=== PATIENT | female | born 1985 | race Caucasian/White ===

== ENCOUNTER → 2016-12-10 | Outpatient (CLI) | payer OTHER ==
--- NOTE | 2016-12-10 11:58 | US ---
First Trimester Obstetrical Sonography Clinical History: 31-year-old female at 7 weeks gestation with some vaginal bleeding. Confir m viability. LMP: October 22, 2016, indicating an age of 7 weeks 0 days, and an estimated date of delivery of Jul. Technique: A curvilinear 5 MHz transducer was used to sonographically evaluate the pelvis, using a fu ll urinary bladder as a window. Color and spectral Doppler of the maternal ovaries and M-mode Doppler of the embryo was performed. A cine clip is stored on PACS. Comparison study: None available. Findings: The uterus is normal in size, shape, and position, measuring 9.2 x 4.5 x 6.7 cm. Within the endometrium, there is a circumferential decidual reaction around a gestational sac, which contains a n embryonic pole with a length of 8.2 mm, corresponding to an age of 6 weeks 6 days. Heart rate activ ity is confirmed at 133 bpm. A 4.3-mm yolk sac is observed. There is a tiny left-sided crescentic sub chorionic hemorrhage measuring 1.0 x 0.5 x 1.5 cm. There is no focal fibroid. The maternal right ovar y measures 3.1 x 2.2 x 2.5 cm with a resistive index of 0.53, and the maternal left ovary measures 4. 1 x 1.9 x 2.0 cm with a resistive index of 0.55. There is a hypoechoic 2.3 x 1.8 x 2.2 cm corpus lute um cyst associated with the left ovary. Impression: 1. There is a single viable intrauterine gestation with biometry concordant with menstrual dating. Th e patient should return at 20 weeks gestation for more complete anatomic screening and repeat biometr y. 2. There is a tiny crescentic left-sided subchorionic hemorrhage.
== END ==
LOC: FIMAGING 10:23
PROVIDERS: ATTEND Obstetrics & Gynecology Gynecology
DX: O26.851 Spotting complicating pregnancy, first trimester (principal); O20.8 Other hemorrhage in early pregnancy; Z3A.01 Less than 8 weeks gestation of pregnancy

== ENCOUNTER 2017-07-22 20:16 | Inpatient (IN) | payer OTHER ==
[2017-07-22] MEDS ORDERED: AMPICILLIN SODIUM 2 GM/10 ML VIAL ONE (20:23)
[2017-07-22] MEDS ORDERED: NS 100 ML BAG (MINI-BAG) IV ONE (20:24)
[2017-07-22] MEDS ORDERED: EPSOM SALT 454 GM TP PRN (20:34)
[2017-07-22] MEDS ORDERED: TERBUTALINE SULFATE 1 MG/ML VIAL IV PRN (20:34)
[2017-07-22] MEDS ORDERED: LR 1,000 ML IV PRN (20:34)
[2017-07-22] MEDS ORDERED: OXYTOCIN 20 UNIT in LR 1,000 ML IV PRN (20:34)
[2017-07-22] MEDS ORDERED: AMPICILLIN SODIUM 2 GM in NS 100 ML IV ONE (20:34)
[2017-07-22] MEDS ORDERED: OLIVE OIL 118 ML BTL MISC PRN (20:34)
[2017-07-22 20:53] LABS: % IMMATURE GRANULYOCYTES 0.7 % (0.0-1.1); ABSOLUTE IMMATURE GRANULOCYTES 0.09 10^3/uL (0.00-0.10); ADD DIFF? NO; ADD MORPH? NO; ADD SCAN? NO; ATYPICAL LYMPHOCYTE FLAG 10 (0-99); FRAGMENT RBC FLAG 0 (0-99); HEMATOCRIT 42.9 % (38.0-47.0); HEMOGLOBIN 15.3 g/dL (12.6-16.3); LEFT SHIFT FLG 0 (0-99); LIPEMIA HEMOLYSIS FLAG 90 (0-99); MEAN CELL HEMOGLOBIN 31.5 pg (27.9-34.1); MEAN CELL HEMOGLOBIN CONCENTR. 35.7 g/dL (32.4-36.7); MEAN CELL VOLUME 88.3 fL (81.5-99.8); MEAN PLATELET VOLUME 11.2 fL (8.7-11.7); PLATELET CLUMPS FLAG 10 (0-99); PLATELET COUNT 176 10^3/uL (150-400); RED BLOOD CELL COUNT 4.86 10^6/uL (4.18-5.33); RED CELL DISTRIBUTION WIDTH 12.4 % (11.5-15.2)
--- NOTE | 2017-07-22 20:56 | OBPROG ---
Labor Progress Note Assessment/Plan: Assessment:cat 2 fhr pain well managed coping fair 9/100/0 + bloody show intact ampicillin #1 at 2030/ GBS positive Plan:expectant management of labor 07/22/17 20:54 Subjective/Intrapartum Course: Contractions began at 1700 q5 minutes denies srom. + bloody show. To labor and delivery at 0800 9cm. Intact feeling positive movement no medical difficulties 07/22/17 20:52 Coping well with the contractions. Changing position. GBS positive denies allergies to PCN - SVE Dilation (cm): 9 Effacement (%): 100 Station: 0 Membranes: Intact - Contraction Pattern Assessment Current Contraction Pattern: Regular - Physical Exam General Appearance: WD/WN, alert, no apparent distress Respiratory: chest non-tender, lungs clear, normal breath sounds Cardiac/Chest: regular rate, rhythm Abdomen: normal bowel sounds Extremities: normal range of motion, Juliano's sign (negative bilaterally) DTR- Lower Extremities: Knee (R): 1+, Knee (L): 1+ (no clonus) Skin: normal color, warm/dry Neuro/Psych: no motor/sensory deficits, alert, normal mood/affect, oriented x 3 ICD10 Worksheet Patient Problems: Problems Problem Status Onset term labor Acute
--- NOTE | 2017-07-22 21:30 | GHP ---
[f rep st] HISTORY AND PHYSICAL DATE OF ADMISSION: 07/22/2017 HISTORY OF PRESENT ILLNESS: The patient is a 32-year-old, 1, para 0, with an EDC of 07/30/2017 at 39 weeks gestation who comes into Labor and Delivery at 2030 on 07/21/2017 with complaints of regular contractions since 5 p.m. On admission the patient is 9 cm, 100% effaced, -1 station, bag of water still intact, cephalic. States feeling positive movement. Denies rupture of membranes. Positive bloody show. The patient is GBS positive. The patient has been routinely seen at [facility] since 12/20/2016 at 8 weeks and 3 days gestation where dates were verified on a first trimester US. PAST MEDICAL HISTORY: Benign. PAST SURGICAL HISTORY: [place] teeth and a hysteroscopy. PAST GYNECOLOGICAL HISTORY: Previous OCP use. Previous natural family planning. With the hysteroscopy, the patient had a history of severe dysmenorrhea and polyps. FAMILY HISTORY: Benign and noncontributory. SOCIAL HISTORY: Significant other's name is Dipesh. Denies tobacco use, drug use , alcohol use with the . LABS: Patient is O positive. Antibody negative. RPR is nonreactive. Rubella is immune. Hepatitis is negative. HIV is negative. Trio screen was negative. TSH was within normal limits. Urine, gonorrhea and chlamydia were negative. A 1-hour GTT was negative. The patient is GBS positive. PHYSICAL EXAMINATION: GENERAL: The patient is awake, alert, oriented x3. LUNGS: Clear bilaterally. ABDOMEN: Bowel sounds are positive in all 4 quadrants. EXTREMITIES: DTRs are 1+ bilaterally. Homans sign is negative bilaterally. The patient is coping well through the contractions. Contractions are every 2-3 minutes, palpating firm. REVIEW OF SYSTEMS: Noncontributory. PLAN OF CARE: 1. Group B Strep positive. Ampicillin for coverage. 2. Expectant management of labor. 3. Consult physician as needed, Dr. Indira Vora. /[id number]/MODL MTDD
[2017-07-22] MEDS ORDERED: TERBUTALINE SULFATE 1 MG/ML VIAL ONE (22:26)
[2017-07-22] MEDS ORDERED: OLIVE OIL 118 ML BTL ONE (22:26)
[2017-07-22] MEDS ORDERED: LIDOCAINE 1% 300 MG/30 ML SDV ONE (22:26)
[2017-07-22] MEDS ORDERED: AMMONIA AROMATIC 1 EACH AMP IH ONE (22:26)
[2017-07-22] MEDS ORDERED: OXYTOCIN 10 UNIT/ML VIAL ONE (22:27)
[2017-07-22] MEDS ORDERED: MISOPROSTOL 200 MCG TAB ONE (22:27)
[2017-07-23] MEDS: AMPICILLIN SODIUM 1 GM in NS 100 ML IV SCH ×2 (00:02→20:18)
[2017-07-23] MEDS ORDERED: HYDROCORTISONE 0.5% CREAM TP PRN (01:29)
[2017-07-23] MEDS ORDERED: ACETAMINOPHEN 325 MG TAB PO PRN (01:29)
[2017-07-23] MEDS ORDERED: SIMETHICONE 80 MG TAB CHEW PO PRN (01:29)
--- NOTE | 2017-07-23 01:29 | OBDEL ---
Info Type: Vaginal Presentation at Delivery: Vertex L&D Analgesia/Anesthesia Type: None GBS+: Yes Antibiotic Used for + GBS: Ampicillin Intrapartum Medications: Generic Name Dose Route Start Last Admin Trade Name Sujata PRN Reason Stop Dose Admin Ampicillin Sodium 1 gm/ Sodium 100 mls @ 200 mls/hr 07/23/17 00:35 07/23/17 00:02 Chloride IV 08/22/17 00:34 100 mls Q4H ARABELLA Administration Protocol Discontinued Medications Generic Name Dose Route Start Last Admin Trade Name Fredarrius PRN Reason Stop Dose Admin Ampicillin Sodium 2 gm/ Sodium 110 mls @ 220 mls/hr 07/22/17 20:34 07/22/17 20:35 Chloride IV 07/22/17 21:03 110 mls ONCE ONE Administration Protocol - Hospital Course Intrapartum: Contractions began at 1700 q5 minutes denies srom. + bloody show. To labor and delivery at 0800 9cm. Intact feeling positive movement no medical difficulties 07/22/17 20:52 Coping well with the contractions. Changing position. GBS positive denies allergies to PCN Indications for Delivery: Spontaneous Labor Vaginal Delivery - Delivery Provider Delivery Physician/CNM: Padmini Haddad Proctoring Provider: Indira Vora - Labor and Delivery Onset of Contractions Date: 07/22/17 Onset of Contractions Time: 18:00 Onset of Contractions Type: Spontaneous Rupture of Membranes Date: 07/22/17 Rupture of Membranes Time: 22:15 Rupture of Membranes Type: Artificial Amniotic Fluid Color: Clear Dilation Complete Date: 07/22/17 Dilation Complete Time: 21:56 Placenta Delivery Date: 07/23/17 Placenta Delivery Time: 00:42 Total Hours of Labor: 6 Non-surgical Procedures: Amniotomy Laceration: 2nd Degree Repair: 3-0, Vicryl, Other (Specify) (repair of 2nd degree by dr. Vora question a 3rd degree intially called physcian flagstone layer for assessment) Vaginal Sponge Count Correct: Yes Vaginal Needle Count Correct: Yes Vaginal Sweep Performed: No EBL: 500 Delivery Events: None - Medications Labor Augmentation/Induction Methods Used: None [place] Data Valdovinos Delivery Date: 07/23/17 Delivery Time: 21:56 FLASH: 07/29/17 Gestational Age: 39 week(s) and 1 day(s) Sex of Infant: Female Score (1 Min): 8 Score (5 Min): 9 ICD10 Worksheet Patient Problems: Problems Problem Status Onset term labor Acute
[2017-07-23] MEDS: IBUPROFEN 600 MG TAB PO PRN ×4 (02:12→20:47)
[2017-07-23] MEDS: DOCUSATE SODIUM 100 MG CAP PO PRN ×2 (08:23→20:47)
[2017-07-23 19:51] VITALS: BP 111/62; PULSE 68; RESP 14; TEMP 97.3; O2SAT 96
[2017-07-24] MEDS ORDERED: SUCROSE 1 EA UDL ONE (00:37)
[2017-07-24] MEDS: IBUPROFEN 600 MG TAB PO PRN ×3 (02:51→18:05)
[2017-07-24] MEDS ORDERED: IRON POLYSAC/IRON HEME 28 MG TAB PO SCH (09:00)
--- NOTE | 2017-07-24 11:17 | OBPP ---
Progress Note Assessment/Plan: Assessment: 32 WF PPD#1 ( @ 0032, 07/23/17) doing well. Plan: Routine post- care. Possible discharge home later today. 07/24/17 11:14 Subjective/ Course: Patient reports that she is doing well overall. She is . She denies significant pain at perineum or laceration repair. She denies significant faintness or weakness. She is ambulating. She reports minimal to moderate lochia. 07/24/17 11:15 Objective: 07/23/17 06:20 Patient ABO/Rh O POSITIVE 07/22/17 20:15 Temp Pulse Resp BP Pulse Ox 36.3 C 68 14 111/62 96 07/23/17 19:50 07/23/17 19:50 07/23/17 19:50 07/23/17 19:50 07/23/17 19:50 General: No acute distress HENT: normocephalic, supple neck Lungs: CTAB, no wheezes Heart: RRR, no m/r/g Abdomen: FF, below umbilicus, non-tender Extremities: no excessive swelling in BLE Uterine Position/Fundal Height: Umbilicus -2 Uterine Tone: Firm
[2017-07-24] MEDS: DOCUSATE SODIUM 100 MG CAP PO PRN (11:54)
--- NOTE | 2017-07-24 13:42 | OBGCSDC ---
General Delivery Information - General Info : 1 Para: 0 Abortions: 0 Type: Vaginal L&D Analgesia/Anesthesia Type: None Admission Date: 07/22/17 Labs: Patient ABO/Rh O POSITIVE 07/22/17 20:15 Hct 33.9 % (38.0-47.0) L 07/23/17 06:20 - Hospital Course Intrapartum: Contractions began at 1700 q5 minutes denies srom. + bloody show. To labor and delivery at 0800 9cm. Intact feeling positive movement no medical difficulties 07/22/17 20:52 Coping well with the contractions. Changing position. GBS positive denies allergies to PCN : Patient reports that she is doing well overall. She is . She denies significant pain at perineum or laceration repair. She denies significant faintness or weakness. She is ambulating. She reports minimal to moderate lochia. 07/24/17 11:15 Vaginal - Delivery Provider Delivery Physician/CNM: Padmini Haddad - Diagnosis Labor: Spontaneous Rupture of Membranes Type: Artificial Amniotic Fluid Color: Clear Laceration: 2nd Degree Repair: 3-0, Vicryl, Other (Specify) (repair of 2nd degree by dr. Vora question a 3rd degree intially called physcian formation fracturing operator for assessment) Delivery Events: None - Procedures Non-surgical Procedures: Amniotomy - Delivery Non-surgical Procedures: Amniotomy EBL: 500 Data Valdovinos Delivery Date: 07/23/17 Delivery Time: 21:56 FLASH: 07/29/17 Gestational Age: 39 week(s) and 2 day(s) Sex of Infant: Female Score (1 Min): 8 Score (5 Min): 9 Discharge Information - Discharge Information Condition: Good Instruction/Follow Up: Four Weeks, Six Weeks
== END 2017-07-24 18:10 | disposition home or self-care (01) | DRG 775 ==
LOC: FLD 20:16 → FOB 07-23 03:50
PROVIDERS: ADMIT Advanced Practice Midwife; ATTEND Obstetrics & Gynecology
PROC: 10E0XZZ Delivery of Products of Conception, External Approach (ICD-10-PCS; principal; 2017-07-22)
PROC: 0KQM0ZZ Repair Perineum Muscle, Open Approach (ICD-10-PCS; 2017-07-22)
PROC: 10907ZC Drainage of Amniotic Fluid, Therapeutic from Products of Conception, Via Natural or Artificial Opening (ICD-10-PCS; 2017-07-22)
DX: O70.1 Second degree perineal laceration during delivery (principal); O99.820 Streptococcus B carrier state complicating pregnancy; Z3A.39 39 weeks gestation of pregnancy; Z37.0 Single live birth
CPT/HCPCS: J0290; J3105

== ENCOUNTER → 2017-08-08 | Outpatient (CLI) | payer OTHER | LOC: FLAB 13:26 | PROVIDERS: ATTEND Advanced Practice Midwife | DX: Z39.1 Encounter for care and examination of lactating mother (principal) | CPT/HCPCS: G0463 ==